=== PATIENT | male | born 1965 | race Caucasian/White ===

== ENCOUNTER → 2022-02-11 | Outpatient (CLI) | payer BC ==
--- NOTE | 2022-02-11 09:34 | RAD ---
EXAM: XR CHEST 2V 02/11/2022 9:11 AM CLINICAL INDICATION: Chemical exposure 20 years ago COMPARISON: None TECHNIQUE: PA and lateral views of the chest FINDINGS: The heart and mediastinum are normal. Lungs are well-expanded and clear. No consolidatio n, pleural effusion, or pneumothorax. Pulmonary vascularity is normal. Mild degenerative joint disea se. IMPRESSION: No acute cardiopulmonary abnormality. Electronically signed by: Concepción Barnett MD (02/11/2022 9:31 AM) [id number]
== END ==
LOC: RAD 08:55
PROVIDERS: ATTEND Physician Assistant Medical
DX: Z77.098 Contact with and (suspected) exposure to other hazardous, chiefly nonmedicinal, chemicals (principal); M47.814 Spondylosis without myelopathy or radiculopathy, thoracic region
CPT/HCPCS: 71046